=== PATIENT | female | born 1975 | race Caucasian/White ===

== ENCOUNTER 2018-10-03 15:11 | Inpatient (IN) | payer OTHER ==
[~2018-10-03] VITALS: Ht 175.3 cm; Wt 131.5 kg
[~2018-10-03 15:11] MED LIST: PERCOCET 7.5/321 TAB
[2018-10-19] MEDS ORDERED: ANAPROX PO (09:04)
[2018-10-19] MEDS ORDERED: PANADOL PO (09:05)
[2018-10-21] MEDS ORDERED: PANADOL MAXIMU500 MG PO (08:44)
[2018-10-21] MEDS ORDERED: NAPROXEN250 MG PO (08:45)
[2018-10-21] MEDS ORDERED: CODE1TAB37 PO (09:25)
== END 2018-10-21 09:54 | DRG 989 ==
LOC: O/R 10-20 07:05 → OB/GYN 10-20 10:30
PROVIDERS: Obstetrics & Gynecology
PROC: 0WBF4ZZ Excision of Abdominal Wall, Percutaneous Endoscopic Approach (ICD-10-PCS; principal; 2018-10-20 10:30)
PROC: 0UJD8ZZ Inspection of Uterus and Cervix, Via Natural or Artificial Opening Endoscopic (ICD-10-PCS; 2018-10-20 10:30)
DX: N80.0 Endometriosis of uterus (principal); D25.0 Submucous leiomyoma of uterus; N84.0 Polyp of corpus uteri

== ENCOUNTER 2022-10-20 11:45 | Inpatient (IN) | payer OTHER ==
[~2022-10-20] VITALS: Ht 175.3 cm; Wt 140.6 kg
[~2022-10-20 11:45] MED LIST changes: +ANAPROX PO; +CODE1TAB37 PO; +NAPROXEN250 MG PO; +PANADOL MAXIMU500 MG PO; +PANADOL PO
[2022-10-25] MEDS ORDERED: COLACE100 MG PO (13:31)
[2022-10-25] MEDS ORDERED: IBU800 MG PO (13:31)
[2022-10-25] MEDS ORDERED: PERCOCET 5-3251 EACH PO (13:31)
[2022-10-25] MEDS ORDERED: SIMETHICONE80 MG PO (13:31)
== END 2022-10-25 14:18 | disposition home or self-care (01) | DRG 743 ==
LOC: SURH 10-22 07:00 → O/R 10-22 08:36 → OB/GYN 10-22 08:36 → SURH 10-22 11:45 → OB/GYN 10-22 20:06
PROVIDERS: ADMIT Obstetrics & Gynecology; ATTEND Obstetrics & Gynecology
PROC: 0DNP0ZZ Release Rectum, Open Approach (ICD-10-PCS; 2022-10-22)
PROC: 0UT70ZZ Resection of Bilateral Fallopian Tubes, Open Approach (ICD-10-PCS; 2022-10-22)
PROC: 0UT20ZZ Resection of Bilateral Ovaries, Open Approach (ICD-10-PCS; 2022-10-22)
PROC: 0TJB8ZZ Inspection of Bladder, Via Natural or Artificial Opening Endoscopic (ICD-10-PCS; 2022-10-22)
PROC: 0UT90ZZ Resection of Uterus, Open Approach (ICD-10-PCS; principal; 2022-10-22 07:00)
DX: D25.1 Intramural leiomyoma of uterus (principal); D25.2 Subserosal leiomyoma of uterus; N73.6 Female pelvic peritoneal adhesions (postinfective); N84.0 Polyp of corpus uteri; G89.18 Other acute postprocedural pain; Z20.822 Contact with and (suspected) exposure to COVID-19